=== PATIENT | male | born 1990 | race Caucasian/White ===

== ENCOUNTER 2016-12-14 15:00 | Emergency (ER) | payer MEDICAID ==
[~2016-12-14] VITALS: Wt 99.8 kg
[~2016-12-14 15:00] MED LIST: ANAPROX DS550 MG PO; ATARAX,VISTARIL50 MG PO; BACTRIM DS 8001 TA1 PO; CARBIDOPA/LEVOD1 TA1 PO; CEPHALEXIN500 M1 PO; CIPROFLOXACIN500 MG PO; MEDROL DOSEPAK4 MG PO; PLACEBO #001 EACH PO; VIBRA-TAB100 MG PO; VIBRAMYCIN100 MG PO; ZOFRAN 4 MG ED2 TAB PO
[2016-12-14 15:13] VITALS: BP 140/84
[2016-12-14] MEDS ORDERED: PREDNISONE10 MG PO (15:25)
[2016-12-14] MEDS ORDERED: CLARITIN10 MG PO (15:25)
[2016-12-14] MEDS ORDERED: FLONASE ALLERG9.9 ML NAS (15:25)
== END 2016-12-14 15:48 | disposition home or self-care (01) ==
LOC: ED 15:00
DX: B34.9 Viral infection, unspecified (principal); R03.0 Elevated blood-pressure reading, without diagnosis of hypertension

== ENCOUNTER 2017-03-08 08:48 | Emergency (ER) | payer MEDICAID ==
[~2017-03-08] VITALS: Ht 185.4 cm; Wt 99.8 kg
[~2017-03-08 08:48] MED LIST changes: +CLARITIN10 MG PO; +FLONASE ALLERG9.9 ML NAS; +PREDNISONE10 MG PO
[2017-03-08 09:03] VITALS: BP 132/91
[2017-03-08 09:46] LABS: BILIRUBIN 1+ (NEGATIVE); BLOOD NEGATIVE (NEGATIVE); CLARITY SL CLOUDY (CLEAR); COLOR YELLOW (YELLOW); GLUCOSE NEGATIVE (NEGATIVE); KETONE NEGATIVE (NEGATIVE); LEUKO ESTERASE TRACE (NEGATIVE); NITRITE NEGATIVE (NEGATIVE); SPECIFIC GRAVITY >= 1.030 (1.005-1.030); UROBILINOGEN 0.2 E.U./dl (0.2-1.0)
[2017-03-08 10:12] LABS: BACTERIA TRACE; MUCOUS 1+; RBC 16-20 rbc/hpf (0-2)
== END 2017-03-08 10:55 | disposition home or self-care (01) ==
LOC: ED 08:48
PROVIDERS: Nurse Practitioner
DX: Z20.2 Contact with and (suspected) exposure to infections with a predominantly sexual mode of transmission (principal); F17.200 Nicotine dependence, unspecified, uncomplicated; Z79.899 Other long term (current) drug therapy

== ENCOUNTER 2017-09-13 14:48 | Emergency (ER) | payer OTHER ==
[~2017-09-13] VITALS: Wt 104.3 kg
[2017-09-13 14:52] VITALS: BP 160/86
[2017-09-13 15:21] LABS: BILIRUBIN NEGATIVE (NEGATIVE); BLOOD NEGATIVE (NEGATIVE); CLARITY CLEAR (CLEAR); COLOR YELLOW (YELLOW); GLUCOSE NEGATIVE (NEGATIVE); KETONE NEGATIVE (NEGATIVE); NITRITE NEGATIVE (NEGATIVE); SPECIFIC GRAVITY 1.025 (1.005-1.030); UROBILINOGEN 0.2 E.U./dl (0.2-1.0)
[2017-09-13 15:40] LABS: LEUKO ESTERASE 1+ (NEGATIVE)
[2017-09-13 15:41] LABS: BACTERIA TRACE; EPITHELIAL CELLS 0-2
== END 2017-09-13 15:11 | disposition home or self-care (01) ==
LOC: ED 14:48
PROVIDERS: Nurse Practitioner Family
DX: R35.0 Frequency of micturition (principal); R03.0 Elevated blood-pressure reading, without diagnosis of hypertension; Z20.2 Contact with and (suspected) exposure to infections with a predominantly sexual mode of transmission

== ENCOUNTER 2018-04-22 09:14 | Emergency (ER) | payer OTHER ==
[~2018-04-22] VITALS: Ht 182.8 cm; Wt 114.8 kg
[2018-04-22 09:17] VITALS: BP 120/78
[2018-04-22] MEDS ORDERED: NAPROSYN500 MG PO (09:41)
[2018-04-22] MEDS ORDERED: TESSALON PERLE100 MG PO (09:41)
[2018-04-22] MEDS ORDERED: ZYRTEC10 MG PO (09:41)
[2018-04-22] MEDS ORDERED: FLONASE ALLERG9.9 ML NAS (09:41)
[2018-04-22 09:43] LABS: BASO % 0.3 % (0.0-1.0); EOS % 0.2 % (1.0-4.0); HEMATOCRIT 44.2 % (42.0-52.0); HEMOGLOBIN 15.1 g/dl (14.0-18.0); LYMPH # 2.3 10*3/uL (1.3-4.4); MEAN CELL VOLUME 91.9 fl (80.0-94.0); MEAN CORPUSCULAR HGB 31.4 pg (27.0-31.0); MEAN CORPUSCULAR HGB CONC 34.2 g/dl (33.0-37.0); MEAN PLATELET VOLUME 11.7 fl (9.6-12.3); MONO # 0.4 10*3/uL (0.1-1.0); MONO % 6.5 % (3.0-9.0); NEUT # 3.8 10*3/uL (2.3-7.9); NEUT % 57.8 % (47.0-73.0); PLATELET COUNT AUTOMATED 195 10*3/uL (130-400); RED BLOOD COUNT 4.81 10*6/uL (4.50-5.90); RED CELL DISTRI WIDTH 12.4 % (0-14.5); WHITE BLOOD COUNT 6.5 10*3/uL (4.8-10.8)
[2018-04-22 09:59] LABS: ALBUMIN 3.7 gm/dl (3.1-4.5); ALKALINE PHOSPHATASE 88 U/L (45-117); BUN 15 mg/dl (7-24); CHLORIDE 109 mmol/L (98-107); CREATININE 0.96 mg/dL (0.70-1.30); POTASSIUM 4.1 mmol/L (3.5-5.1); SGOT/AST 39 IU/L (3-35); SGPT/ALT 98 U/L (12-78); SODIUM 140 mmol/L (136-145); TOTAL PROTEIN 7.4 gm/dL (6.4-8.2)
== END 2018-04-22 11:27 | disposition home or self-care (01) ==
LOC: ED 09:14
PROVIDERS: Nurse Practitioner Family
DX: J06.9 Acute upper respiratory infection, unspecified (principal); R09.1 Pleurisy; Z91.048 Other nonmedicinal substance allergy status; Z87.891 Personal history of nicotine dependence

== ENCOUNTER 2018-07-12 01:36 | Emergency (ER) | payer OTHER ==
[~2018-07-12] VITALS: Ht 182.8 cm; Wt 113.4 kg
--- NOTE | ~2018-07-12 | EKG ---
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
[2018-07-12 01:36] VITALS: BP 156/85
[~2018-07-12 01:36] MED LIST changes: +NAPROSYN500 MG PO; +TESSALON PERLE100 MG PO; +ZYRTEC10 MG PO
[2018-07-12 01:56] LABS: BASO % 0.4 % (0.0-1.0); EOS # 0.1 10*3/uL (0.0-0.4); EOS % 0.8 % (1.0-4.0); HEMATOCRIT 44.6 % (42.0-52.0); LYMPH # 3.8 10*3/uL (1.3-4.4); LYMPH % 40.4 % (27.0-41.0); MEAN CELL VOLUME 95.1 fl (80.0-94.0); MEAN CORPUSCULAR HGB CONC 33.6 g/dl (33.0-37.0); MEAN PLATELET VOLUME 11.6 fl (9.6-12.3); MONO # 0.7 10*3/uL (0.1-1.0); NEUT # 4.7 10*3/uL (2.3-7.9); NEUT % 50.2 % (47.0-73.0); PLATELET COUNT AUTOMATED 201 10*3/uL (130-400); RED BLOOD COUNT 4.69 10*6/uL (4.50-5.90); RED CELL DISTRI WIDTH 12.9 % (0-14.5); WHITE BLOOD COUNT 9.3 10*3/uL (4.8-10.8)
[2018-07-12 02:14] LABS: ACT PARTIAL THROMBO TIME 25.5 SECONDS (20.8-31.5); INTERNATIONAL NORM RATIO 0.9 (2.0-3.5)
[2018-07-12 02:19] LABS: ALBUMIN 3.9 gm/dl (3.1-4.5); ALKALINE PHOSPHATASE 98 U/L (45-117); BUN 16 mg/dl (7-24); CHLORIDE 106 mmol/L (98-107); CREATININE 1.12 mg/dL (0.70-1.30); POTASSIUM 4.1 mmol/L (3.5-5.1); SGOT/AST 47 IU/L (3-35); SGPT/ALT 97 U/L (12-78); SODIUM 141 mmol/L (136-145); TOTAL PROTEIN 7.8 gm/dL (6.4-8.2)
[2018-07-12 02:23] LABS: TROPONIN I < 0.015 ng/ml (<0.045)
== END 2018-07-12 04:16 | disposition left against medical advice (07) ==
LOC: ED 01:36
PROVIDERS: Student in an Organized Health Care Education/Training Program
DX: R07.9 Chest pain, unspecified (principal)

== ENCOUNTER 2018-08-08 16:49 | Emergency (ER) | payer OTHER ==
[~2018-08-08] VITALS: Ht 182.8 cm; Wt 119.7 kg
[2018-08-08 16:49] VITALS: BP 141/82
[2018-08-08 17:11] LABS: BILIRUBIN NEGATIVE (NEGATIVE); BLOOD NEGATIVE (NEGATIVE); CLARITY CLEAR (CLEAR); COLOR YELLOW (YELLOW); GLUCOSE NEGATIVE (NEGATIVE); KETONE NEGATIVE (NEGATIVE); LEUKO ESTERASE NEGATIVE (NEGATIVE); NITRITE NEGATIVE (NEGATIVE); SPECIFIC GRAVITY >= 1.030 (1.005-1.030); UROBILINOGEN 0.2 E.U./dl (0.2-1.0)
[2018-08-08 17:19] LABS: BACTERIA TRACE; EPITHELIAL CELLS 0-2; MUCOUS 3+
[2018-08-10 20:04] LABS: GONOCOCCUS BY NAA Negative (Negative)
== END 2018-08-08 16:57 | disposition home or self-care (01) ==
LOC: ED 16:49
PROVIDERS: Physician Assistant
DX: R30.0 Dysuria (principal); N48.89 Other specified disorders of penis; Z11.3 Encounter for screening for infections with a predominantly sexual mode of transmission; F17.200 Nicotine dependence, unspecified, uncomplicated; Z91.048 Other nonmedicinal substance allergy status; Z79.899 Other long term (current) drug therapy

== ENCOUNTER → 2019-02-22 | Outpatient (CLI) | payer OTHER | END | disposition home or self-care (01) | LOC: US 13:00 → LAB 13:03 | DX: N43.2 Other hydrocele (principal); N28.89 Other specified disorders of kidney and ureter ==

== ENCOUNTER 2019-06-07 17:46 | Emergency (ER) | payer OTHER ==
[~2019-06-07] VITALS: Ht 185.4 cm; Wt 113.4 kg
[2019-06-07 17:50] VITALS: BP 146/89
[2019-06-07 19:06] LABS: BASO % 0.2 % (0.0-1.0); EOS % 0.4 % (1.0-4.0); HEMATOCRIT 44.4 % (42.0-52.0); HEMOGLOBIN 15.2 g/dl (14.0-18.0); LYMPH # 2.4 10*3/uL (1.3-4.4); LYMPH % 26.6 % (27.0-41.0); MEAN CELL VOLUME 92.7 fl (80.0-94.0); MEAN CORPUSCULAR HGB 31.7 pg (27.0-31.0); MEAN CORPUSCULAR HGB CONC 34.2 g/dl (33.0-37.0); MEAN PLATELET VOLUME 11.7 fl (9.6-12.3); MONO # 0.5 10*3/uL (0.1-1.0); MONO % 5.8 % (3.0-9.0); NEUT # 5.9 10*3/uL (2.3-7.9); NEUT % 66.8 % (47.0-73.0); PLATELET COUNT AUTOMATED 223 10*3/uL (130-400); RED BLOOD COUNT 4.79 10*6/uL (4.50-5.90); RED CELL DISTRI WIDTH 12.3 % (0-14.5); WHITE BLOOD COUNT 8.9 10*3/uL (4.8-10.8)
[2019-06-07 19:18] LABS: ACT PARTIAL THROMBO TIME 29.6 SECONDS (20.0-32.1); INTERNATIONAL NORM RATIO 0.9 (2.0-3.5)
[2019-06-07 19:32] LABS: ALBUMIN 3.9 gm/dl (3.1-4.5); ALKALINE PHOSPHATASE 86 U/L (45-117); BUN 13 mg/dl (7-24); CHLORIDE 107 mmol/L (98-107); CREATININE 0.99 mg/dL (0.70-1.30); LIPASE 99 U/L (73-393); POTASSIUM 3.7 mmol/L (3.5-5.1); SGOT/AST 42 IU/L (3-35); SGPT/ALT 92 U/L (12-78); SODIUM 137 mmol/L (136-145); TOTAL PROTEIN 7.9 gm/dL (6.4-8.2)
[2019-06-07 19:45] LABS: TROPONIN I < 0.015 ng/ml (<0.045)
[2019-06-07] MEDS ORDERED: IBUPROFEN600 MG PO (19:58)
== END 2019-06-07 20:01 | disposition home or self-care (01) ==
LOC: ED 17:46
PROVIDERS: Physician Assistant
DX: R09.1 Pleurisy (principal); F41.9 Anxiety disorder, unspecified; F17.210 Nicotine dependence, cigarettes, uncomplicated

== ENCOUNTER 2019-10-07 15:38 | Emergency (ER) | payer OTHER ==
[~2019-10-07] VITALS: Ht 185.4 cm; Wt 131.5 kg
[~2019-10-07 15:38] MED LIST changes: +IBUPROFEN600 MG PO
[2019-10-07 15:49] VITALS: BP 129/69
[2019-10-07 16:51] LABS: BUN 10 mg/dl (7-24); CHLORIDE 111 mmol/L (98-107); CREATININE 1.01 mg/dL (0.70-1.30); POTASSIUM 4.6 mmol/L (3.5-5.1); SODIUM 141 mmol/L (136-145)
[2019-10-07 17:25] LABS: BASO % 0.3 % (0.0-1.0); EOS # 0.1 10*3/uL (0.0-0.4); EOS % 0.8 % (1.0-4.0); HEMATOCRIT 43.9 % (42.0-52.0); LYMPH # 2.2 10*3/uL (1.3-4.4); MEAN CELL VOLUME 91.3 fl (80.0-94.0); MEAN CORPUSCULAR HGB CONC 33.9 g/dl (33.0-37.0); MEAN PLATELET VOLUME 11.7 fl (9.6-12.3); MONO # 0.7 10*3/uL (0.1-1.0); MONO % 8.9 % (3.0-9.0); NEUT # 4.9 10*3/uL (2.3-7.9); NEUT % 61.9 % (47.0-73.0); PLATELET COUNT AUTOMATED 214 10*3/uL (130-400); RED BLOOD COUNT 4.81 10*6/uL (4.50-5.90); RED CELL DISTRI WIDTH 12.6 % (0-14.5); WHITE BLOOD COUNT 7.9 10*3/uL (4.8-10.8)
== END 2019-10-07 20:10 | disposition home or self-care (01) ==
LOC: ED 15:38
PROVIDERS: Emergency Medicine
DX: F45.8 Other somatoform disorders (principal); F17.200 Nicotine dependence, unspecified, uncomplicated

== ENCOUNTER 2019-12-30 23:54 | Emergency (ER) | payer OTHER ==
[~2019-12-30] VITALS: Ht 185.4 cm; Wt 131.5 kg
[2019-12-31 00:04] VITALS: BP 131/65
[2019-12-31 00:43] LABS: BASO % 0.1 % (0.0-1.0); EOS # 0.1 10*3/uL (0.0-0.4); EOS % 0.7 % (1.0-4.0); HEMATOCRIT 43.1 % (42.0-52.0); LYMPH # 3.3 10*3/uL (1.3-4.4); LYMPH % 36.2 % (27.0-41.0); MEAN CELL VOLUME 91.3 fl (80.0-94.0); MEAN CORPUSCULAR HGB 30.3 pg (27.0-31.0); MEAN CORPUSCULAR HGB CONC 33.2 g/dl (33.0-37.0); MEAN PLATELET VOLUME 11.7 fl (9.6-12.3); MONO # 0.7 10*3/uL (0.1-1.0); MONO % 7.5 % (3.0-9.0); NEUT % 55.4 % (47.0-73.0); PLATELET COUNT AUTOMATED 209 10*3/uL (130-400); RED BLOOD COUNT 4.72 10*6/uL (4.50-5.90); RED CELL DISTRI WIDTH 12.7 % (0-14.5); WHITE BLOOD COUNT 9.1 10*3/uL (4.8-10.8)
[2019-12-31 00:59] LABS: ALBUMIN 3.7 gm/dl (3.1-4.5); ALKALINE PHOSPHATASE 89 U/L (45-117); BUN 15 mg/dl (7-24); CHLORIDE 109 mmol/L (98-107); CREATININE 1.09 mg/dL (0.70-1.30); POTASSIUM 3.9 mmol/L (3.5-5.1); SGOT/AST 47 IU/L (3-35); SGPT/ALT 83 U/L (12-78); SODIUM 137 mmol/L (136-145); TOTAL PROTEIN 7.4 gm/dL (6.4-8.2)
[2019-12-31 01:00] LABS: TROPONIN I < 0.015 ng/ml (<0.045)
== END 2019-12-31 01:33 | disposition home or self-care (01) ==
LOC: ED 23:54
PROVIDERS: Emergency Medicine
DX: R07.89 Other chest pain (principal); Z79.899 Other long term (current) drug therapy

== ENCOUNTER 2020-10-07 19:35 | Emergency (ER) | payer OTHER ==
[~2020-10-07] VITALS: Ht 182.8 cm; Wt 127.9 kg
[2020-10-07 20:13] VITALS: BP 122/78
== END 2020-10-07 21:49 | disposition left against medical advice (07) ==
LOC: ED 19:35
DX: I10 Essential (primary) hypertension (principal); F17.200 Nicotine dependence, unspecified, uncomplicated

== ENCOUNTER 2021-02-04 09:14 | Emergency (ER) | payer OTHER ==
[2021-02-04 09:19] VITALS: BP 106/77
[2021-02-04 10:21] LABS: BASO % 0.2 % (0.0-1.0); HEMATOCRIT 46.4 % (42.0-52.0); LYMPH # 1.2 10*3/uL (1.3-4.4); LYMPH % 26.7 % (27.0-41.0); MEAN CORPUSCULAR HGB CONC 34.1 g/dl (33.0-37.0); MEAN PLATELET VOLUME 12.3 fl (9.6-12.3); MONO # 0.4 10*3/uL (0.1-1.0); MONO % 8.5 % (3.0-9.0); NEUT # 2.8 10*3/uL (2.3-7.9); NEUT % 64.6 % (47.0-73.0); PLATELET COUNT AUTOMATED 146 10*3/uL (130-400); RED BLOOD COUNT 5.27 10*6/uL (4.50-5.90); RED CELL DISTRI WIDTH 12.7 % (0-14.5); WHITE BLOOD COUNT 4.4 10*3/uL (4.8-10.8)
[2021-02-04 10:38] LABS: ALBUMIN 3.6 gm/dl (3.1-4.5); ALKALINE PHOSPHATASE 93 U/L (45-117); BUN 11 mg/dl (7-24); CHLORIDE 111 mmol/L (98-107); CREATININE 1.16 mg/dL (0.70-1.30); LIPASE 199 U/L (73-393); POTASSIUM 3.5 mmol/L (3.5-5.1); SGOT/AST 55 IU/L (3-35); SGPT/ALT 71 U/L (12-78); SODIUM 139 mmol/L (136-145); TOTAL PROTEIN 7.5 gm/dL (6.4-8.2)
[2021-02-04 10:40] LABS: TROPONIN I < 0.015 ng/ml (<0.045)
[2021-02-04] MEDS ORDERED: ZOFRAN4 MG PO (11:57)
== END 2021-02-04 12:05 | disposition home or self-care (01) ==
LOC: ED 09:14
PROVIDERS: Emergency Medicine
DX: U07.1 COVID-19 (principal); J12.82 Pneumonia due to coronavirus disease 2019; E66.9 Obesity, unspecified; K59.00 Constipation, unspecified; I10 Essential (primary) hypertension; Z91.048 Other nonmedicinal substance allergy status; F17.200 Nicotine dependence, unspecified, uncomplicated; Z79.899 Other long term (current) drug therapy; Z98.890 Other specified postprocedural states

== ENCOUNTER 2021-04-26 22:11 | Emergency (ER) | payer OTHER ==
[~2021-04-26] VITALS: Ht 182.8 cm; Wt 127.9 kg
[~2021-04-26 22:11] MED LIST changes: +ZOFRAN4 MG PO
[2021-04-26 22:28] VITALS: BP 117/80
[2021-04-26] MEDS ORDERED: PROTONIX40 MG PO (22:28)
[2021-04-26] MEDS ORDERED: MAVYRET 100-401 EACH PO (22:29)
[2021-04-26] MEDS ORDERED: AUGMENTIN 875875 MG PO (23:03)
== END 2021-04-27 00:32 | disposition home or self-care (01) ==
LOC: ED 22:11
DX: S61.256A Open bite of right little finger without damage to nail, initial encounter (principal); Z79.899 Other long term (current) drug therapy; W54.0XXA Bitten by dog, initial encounter; Y93.89 Activity, other specified; Y92.89 Other specified places as the place of occurrence of the external cause; Y99.8 Other external cause status

== ENCOUNTER 2023-11-05 16:15 | Emergency (ER) | payer MEDICAID ==
[~2023-11-05] VITALS: Wt 122.5 kg
[~2023-11-05 16:15] MED LIST changes: +AUGMENTIN 875875 MG PO; +MAVYRET 100-401 EACH PO; +PROTONIX40 MG PO
[2023-11-05 16:33] VITALS: BP 129/74
[2023-11-05] MEDS ORDERED: Tdap Vaccine 0.5 ML SYR (Adult Vaccine) IM ONE (16:45)
== END 2023-11-05 17:19 | disposition home or self-care (01) ==
LOC: ED 16:15
DX: S61.412A Laceration without foreign body of left hand, initial encounter (principal); F17.200 Nicotine dependence, unspecified, uncomplicated; Z91.048 Other nonmedicinal substance allergy status; Z98.890 Other specified postprocedural states; W27.8XXA Contact with other nonpowered hand tool, initial encounter; Y93.89 Activity, other specified; Y92.89 Other specified places as the place of occurrence of the external cause; Y99.8 Other external cause status